=== PATIENT | female | born 1990 | race Caucasian/White ===

== ENCOUNTER 2016-08-17 17:53 | Emergency (ER) ==
[2016-08-17 17:58] VITALS: BP 124/81; TEMP 99.2; BMI 32.1
[2016-08-17] MEDS ORDERED: TORADOL IM STA (18:05)
[2016-08-17] MEDS ORDERED: DILAUDID 2 MG/ML SYRINGE IM STA (18:05)
[2016-08-17] MEDS ORDERED: PHENERGAN 25 MG/ML VIAL IM STA (18:05)
--- NOTE | 2016-08-17 18:08 | ED.PDOC ---
General ED Provider: Dr. BILL MEDINA-ER Chief Complaint: Headache Stated Complaint: tess got a migraine--tess had them since i was a little kid Time Seen by Physician: 17:55 Mode of Arrival: Walk-In Information Source: Patient Exam Limitations: No limitations Primary Care Provider: BILL MEDINA Nursing and Triage Documentation Reviewed and Agree: Yes Neurological Complaint Exam - Headache Complaint/Exam Onset: Gradual Duration: 24hrs Symptoms Are: Still present Timing: Constant Episodes Lasting: Hours Worst Headache Ever: No Initial Severity: Mild Current Severity: Moderate Location: Right Character: Reports: Dull, Throbbing, Pressure, Typical headache, Migraine Aggravating: Reports: Bright lights Alleviating: Reports: None Associated Signs and Symptoms: Reports: Nausea, Vomiting. Denies: Dizziness, Seizure, Sinus pressure, Fever, Neck pain, Neck stiffness, Decreased LOC, Visual changes Related History: Reports: Similar episode. Denies: Recent trauma, Remote trauma Related Surgical History: Reports: None SAH Risk Factors: Reports: None Meningitis Risk Factors: Reports: None SDH Risk Factors: Reports: None Temporal Arteritis Risk Factors: Reports: Female, Normal Head CT Within Last 12 Months: Yes Fundoscopic Exam: Present: Normal Findings Papilledema Present: No Temporal Artery Tenderness: Present: None Sinus Tenderness: Present: None TMJ Tenderness: Present: None Glascow Coma Scale (see protocol): 15 Meningeal Signs Positive: No Pain on Passive Flexion-Positive Kernig's: No ROM Limited In: No Limitiations Focal Weakness: Present: None Focal Sensory Loss: Present: None Gait: Normal Nystagmus Present: No Gag Reflex Present: Yes Romberg Test Positive: No Babinski Sign: Negative Right, Negative Left Heel to Toe Normal: Yes Differential Diagnoses: Migraine Review of Systems - Review Of Systems Constitutional: Reports: No symptoms Eyes: Reports: No symptoms Ears, Nose, Mouth, Throat: Reports: No symptoms Respiratory: Reports: No symptoms Cardiac: Reports: No symptoms GI: Reports: Nausea : Reports: No symptoms Musculoskeletal: Reports: No symptoms Skin: Reports: No symptoms Neurological: Reports: Headache Endocrine: Reports: No symptoms Hematologic/Lymphatic: Reports: No symptoms All Other Systems: Reviewed and Negative Past Medical History - Past Medical History Endocrine: Reports: Unknown Cardiovascular: Reports: Unknown Respiratory: Reports: Unknown Hematological: Reports: Unknown Gastrointestinal: Reports: Unknown Genitourinary: Reports: Unknown Neuro/Psych: Reports: Unknown Musculoskeletal: Reports: Unknown Cancer: Reports: Unknown Last Menstrual Period: now - Surgical History General Surgical History: Reports: Other - Family History Family History: Reports: Unknown - Social History Smoking Status: Never smoker Hx Substance Use: No Alcohol Screening: None Lives: With family Physical Exam - Physical Exam Appearance: Well-appearing, No pain distress, Well-nourished Pain Distress: Moderate Eyes: PELON, EOMI, Conjunctiva clear ENT: Ears normal, Nose normal, Oropharynx normal Neck: Supple Respiratory: Airway patent, Breath sounds clear, Breath sounds equal, Respirations nonlabored Cardiovascular: RRR, Pulses normal, No rub, No murmur GI/: Soft, Nontender, No masses, Bowel sounds normal, No Organomegaly Musculoskeletal: Normal strength, ROM intact, No edema, No calf tenderness Skin: Warm, Dry, Normal color Neurological: Sensation intact, Motor intact, Reflexes intact, Cranial nerves intact, Alert, Oriented Psychiatric: Affect appropriate, Mood appropriate Re-Evaluation - Re-Evaluation Time of Re-Evaluation: 18:08 Status: Improved Vital Signs Stable: Yes Pain Level: 1 Appearance: NAD Lungs: Clear Skin: Warm and Dry Neuro: Alert and Oriented X3 CV: RRR Critical Care Note - Critical Care Note Total Time (mins): 0 Course - Course Orders, Labs, Meds: Orders Category Date Time Status Hydromorphone HCl/Pf [Dilaudid 2 mg/ml Syringe] MEDS 08/17/16 18:05 Discontinued 2 mg IM ONCE STA Ketorolac Tromethamine [Toradol] MEDS 08/17/16 18:05 Discontinued 60 mg IM ONCE STA Promethazine HCl [Phenergan 25 mg/ml Vial] MEDS 08/17/16 18:05 Discontinued 25 mg IM ONCE STA Medications Discontinued Medications Generic Name Dose Route Start Last Admin Trade Name Freq PRN Reason Stop Dose Admin Hydromorphone HCl 2 mg 08/17/16 18:05 Dilaudid 2 Mg/Ml Syringe IM 08/17/16 18:06 ONCE STA Ketorolac Tromethamine 60 mg 08/17/16 18:05 Toradol IM 08/17/16 18:06 ONCE STA Promethazine HCl 25 mg 08/17/16 18:05 Phenergan 25 Mg/Ml Vial IM 08/17/16 18:06 ONCE STA Vital Signs: Temp Pulse Resp BP Pulse Ox 08/17/16 17:54 99.2 F 78 16 124/81 98 Departure - Departure Time of Disposition: 18:09 Disposition: HOME SELF-CARE Discharge Problem: Migraine headache Qualifiers: Migraine type: unspecified Status migrainosus presence: without status migrainosus Intractability: not intractable Qualifier Code: (G43.909) Migraine, unspecified, not intractable, without status migrainosus Instructions: Migraine Headache (ED) Condition: Good Pt referred to PMD for follow-up: Yes Additional Instructions: f/u with me in the office Allergies/Adverse Reactions: Allergies loratadine [From Claritin] Adverse Reaction (Verified 08/17/16 18:00) control Adverse Reaction (Uncoded 09/28/14 12:10) Home Medications: Ambulatory Orders Ethynodiol D-Ethinyl Estradiol [Zovia 1-35E Tablet] 1 each PO DAILY 08/17/16 Disposition Discussed With: Patient, Family
== END 2016-08-17 18:56 | disposition home or self-care (01) ==
LOC: ED 17:53
DX: G43.909 Migraine, unspecified, not intractable, without status migrainosus (principal)
CPT/HCPCS: 96372; 99282

== ENCOUNTER 2016-08-19 06:54 | Outpatient (CLI) ==
--- NOTE | 2016-08-19 09:38 | MRI ---
EXAM: MRA brain without IV contrast. DATE: 19 August 2016. HISTORY: Headaches. TECHNIQUE: 3-D yorz-vy-rcdett sequence centered on the [place] was performed without IV contr ast, using 1.2 Afia magnet. 3-D MIP reconstruction images of the intracranial arteries were produc ed in addition to the axial source images. Degree of vessel stenoses determined using NASCET criteri a. COMPARISON: MRI brain 19 August 2016. FINDINGS: Left vertebral artery is dominant. Basilar artery is normal in diameter, without focal s tenosis, dissection or aneurysm. Each superior cerebellar artery is intact. Right PCOM is intact, b ut diminutive in size, and only visible on the source images. Left PCOM is not visible. ACOM is in tact, but diminutive in size, and visible only on the source images. Symmetric bilateral blood flow is evident within the anterior, middle, and posterior cerebral artery distributions peripherally. No intracranial aneurysm or AVM is detected. Both petrous ICAs are normal. Each cavernous ICA demo nstrates longitudinal intraluminal dark linear bands which do not have corresponding abnormalities o n the T2W, FLAIR, or T1W sequences from the MRI brain exam. IMPRESSIONS: 1. Intact, diminutive ACOM. 2. Intact, diminutive right PCOM. 3. No intracranial aneurysm or AVM. 4. Left vertebral artery is dominant. 5. Longitudinal dark bands within each cavernous ICA on this MRA are most consistent with artifacts . There is no signal abnormality on the MRI brain images to indicate a true dissection.
--- NOTE | 2016-08-19 09:44 | MRI ---
EXAM: MRI brain without IV contrast. DATE: 19 August 2016. HISTORY: Headaches. TECHNIQUE: Sagittal T1W, axial T2W, axial FLAIR, axial T1W, axial DWI, and coronal T2W GRE sequence s of the brain were obtained using 1.2 Afia magnet. No IV contrast. COMPARISON: MRA brain 19 August 2016. MRI C-spine 05/08/2013. FINDINGS: The lateral ventricles are upper normal size. Cerebral sulci are are normal in size and configuration. Cisterna magna is mildly prominent (normal variation). No midline shift, mass effec t or abnormal extra-axial fluid collection is apparent. No acute infarct, hemorrhage or neoplasm is identified. Minimal FLAIR hyperintensity abutting the anterior horn of each lateral ventricle may be normal variation vs minimal small vessel disease. The chester - white matter differentiation is nor mal. The 7th/8th cranial nerve complexes, cerebellopontine angles, brainstem, and visible cervical spinal cord are normal. There is no cerebellar tonsillar ectopia. The pituitary gland is small in size. Corpus callosum is normal in size and configuration. Flow voids are present in the major int racranial arteries and in the dural venous sinuses. No aneurysm, AVM or dural venous sinus thrombos is is apparent. No orbit abnormality is identified. The mastoid air cells are unremarkable. There is minor mucosal thickening within each maxillary sinus and scattered ethmoid air cells. Several s mall lymph nodes are identified in the upper neck bilaterally. No neck mass or lymphadenopathy is d etected. No calvarial neoplasm or acute fracture is evident. T1W bone marrow signal in the cervical spine calvarium is similar to that of the intervertebral discs. IMPRESSIONS: 1. No acute infarct, hemorrhage, mass or hydrocephalus. 2. Normal variation vs minor periventricular small vessel disease. 3. Dexter cisterna magna normal variation. 4. Small pituitary gland. No pituitary lesion. 5. Minor ethmoid and maxillary sinus disease. 6. Borderline T1W bone marrow signal. DDX: Normal variation vs red marrow hyperplasia / red marro w reconversion. Correlate for anemia.
== END 2016-08-19 06:55 | disposition home or self-care (01) ==
LOC: RAD 06:54
PROVIDERS: ATTEND Family Medicine
DX: G43.009 Migraine without aura, not intractable, without status migrainosus (principal)

== ENCOUNTER 2016-12-23 10:40 | Outpatient (CLI) ==
--- NOTE | 2016-12-23 12:26 | DI ---
EXAM: Two views of the chest. 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 Findings: Heart size is normal. No focal consolidation. No appreciable pleural fluid and no pneum othorax. No acute osseous abnormalities. Impression: No acute cardiopulmonary process.
== END 2016-12-23 10:41 | disposition home or self-care (01) ==
LOC: RAD 10:40
PROVIDERS: ATTEND Family Medicine
DX: R76.12 Nonspecific reaction to cell mediated immunity measurement of gamma interferon antigen response without active tuberculosis (principal)

== ENCOUNTER 2018-01-30 15:01 | Emergency (ER) | payer OTHER ==
[2018-01-30 15:06] VITALS: BP 115/82; BMI 33.7
[2018-01-30] MEDS ORDERED: LACTATED RINGERS 1,000 ML IV STA ×2 (15:17→17:34)
[2018-01-30] MEDS ORDERED: LOMOTIL PO STA (15:17)
--- NOTE | 2018-01-30 15:17 | ED.PDOC ---
General ED Provider: Dr. NINA MENJIVAR Chief Complaint: Diarrhea Stated Complaint: Complains of Multiple diarrhea stools all day cannot quantify. Time Seen by Physician: 15:16 Mode of Arrival: Walk-In Information Source: Patient Exam Limitations: No limitations Primary Care Provider: BILL MEDINA Nursing and Triage Documentation Reviewed and Agree: No Does patient meet sepsis criteria?: No System Inflammatory Response Syndrome: Pulse >90 BPM Sepsis Protocol: For patient's 13 years and over: Temp is 96.8 and below OR 101 and greater Pulse >90 BPM Resp >20/minute Acutely Altered Mental Status Are patient's symptoms suggestive of a new infection, such as: -Pneumonia -Skin, Soft Tissue -Endocarditis -UTI -Bone, Joint Infection -Implantable Device -Acute Abdominal Infection -Wound Infection -Meningitis -Blood Stream Catheter Infection -Unknown GI Complaint Exam - Vomiting/Diarrhea Complaint/Exam Onset/Duration: 2 days Symptoms Are: Still present Episodes of Vomiting over last 24 Hours: 1 (while in the ER about 500ml) Episodes of Diarrhea Over Last 24 Hours: 25 Initial Severity: Moderate Current Severity: Severe Character of Diarrhea: Reports: Watery Aggravating: Reports: Food Alleviating: Reports: None Associated Signs and Symptoms: Reports: Abdominal pain, Cramping. Denies: Dizziness, Light-headedness, Melena, Hematemesis, Fever Recent Positive Test: No Use of Oral Contraceptives: Yes Use of Depoprovera: No Compliant With Contraceptive Use: Yes Non-GI Risk Factors: Reports: None Surgical Obstruction Risk Factors: Reports: None Related Surgical History: Reports: None Abdominal Findings: Present: Other (mild tenderness diffusely ). Absent: Rebound tenderness Kussmaul Respirations Present: No Differential Diagnoses: Bowel Obstruction, Cholecystitis, Cholelithiasis, Dehydration, Gastritis, PUD, Viral Gastroenteritis, Bacterial Gastroenteritis, Hepatitis, Pancreatitis, , UTI Review of Systems - Review Of Systems Constitutional: Reports: No symptoms Eyes: Reports: No symptoms Ears, Nose, Mouth, Throat: Reports: No symptoms Respiratory: Reports: No symptoms Cardiac: Reports: No symptoms GI: Reports: Abdominal pain, Nausea, Poor appetite. Denies: Vomiting : Reports: No symptoms Musculoskeletal: Reports: No symptoms Skin: Reports: No symptoms Neurological: Reports: No symptoms Endocrine: Reports: No symptoms Hematologic/Lymphatic: Reports: No symptoms All Other Systems: Reviewed and Negative Past Medical History - Past Medical History Previously Healthy: Yes Endocrine: Reports: None Cardiovascular: Reports: None Respiratory: Reports: None Hematological: Reports: None Gastrointestinal: Reports: None, Other (Appendicities ) Genitourinary: Reports: None Neuro/Psych: Reports: None Musculoskeletal: Reports: None Cancer: Reports: None Last Menstrual Period: 2 weeks - Surgical History General Surgical History: Reports: Appendectomy, Cholecystectomy, Other ( MISCARRIAGE X2) - Family History Family History: Reports: None - Social History Smoking Status: Never smoker Hx Substance Use: No Alcohol Screening: None Physical Exam - Physical Exam Appearance: Ill-appearing, Obese Ill-appearing: Mild Pain Distress: Mild Eyes: PELON, EOMI, Conjunctiva clear ENT: Nose normal, Oropharynx normal Neck: Supple Respiratory: Airway patent, Breath sounds clear, Breath sounds equal, Respirations nonlabored Cardiovascular: Pulses normal, No rub, No murmur, Tachycardia GI/: Soft, No masses, Bowel sounds normal, No Organomegaly, Tender (diffuse ) Musculoskeletal: Normal strength, ROM intact, No edema, No calf tenderness Skin: Warm, Dry, Normal color Neurological: Sensation intact, Motor intact, Cranial nerves intact, Alert, Oriented Psychiatric: Anxious Critical Care Note - Critical Care Note Total Time (mins): 0 Course - Course Hematology/Chemistry: 01/30/18 15:30 01/30/18 15:30 Orders, Labs, Meds: Lab Review 01/30/18 01/30/18 01/30/18 15:30 15:30 15:30 WBC 18.09 H RBC 5.15 Hgb 15.1 Hct 44.4 MCV 86.2 MCH 29.3 MCHC 34.0 RDW Coeff of Dayday 13.2 Plt Count 337 Immature Gran % (Auto) 0.4 Neut % (Auto) 85.7 Lymph % (Auto) 4.8 L [place] % (Auto) 5.6 Eos % (Auto) 3.1 Baso % (Auto) 0.4 Immature Gran # (Auto) 0.1 Neut # (Auto) 15.5 H Lymph # (Auto) 0.9 [place] # (Auto) 1.0 Eos # (Auto) 0.6 Baso # (Auto) 0.1 Sodium 138 Potassium 3.6 Chloride 106 Carbon Dioxide 21 Anion Gap 14.6 BUN 12 Creatinine 0.88 Estimated GFR (MDRD) 77.00 BUN/Creatinine Ratio 13.63 Glucose 93 Calcium 8.7 Total Bilirubin 0.7 AST 16 ALT 20 Alkaline Phosphatase 82 Total Protein 7.2 Albumin 3.1 L Globulin 4.1 Albumin/Globulin Ratio 0.76 Amylase 35 Lipase 11 Serum , Qual Negative Urine Color Urine Clarity Urine pH Ur Specific [place] Urine Protein Urine Glucose (UA) Urine Ketones Urine Blood Urine Nitrite Urine Bilirubin Urine Urobilinogen Ur Leukocyte Esterase Urine Microscopic RBC Ur Squamous Epith Cells Urine Mucus 01/30/18 16:37 WBC RBC Hgb Hct MCV MCH MCHC RDW Coeff of Dayday Plt Count Immature Gran % (Auto) Neut % (Auto) Lymph % (Auto) [place] % (Auto) Eos % (Auto) Baso % (Auto) Immature Gran # (Auto) Neut # (Auto) Lymph # (Auto) [place] # (Auto) Eos # (Auto) Baso # (Auto) Sodium Potassium Chloride Carbon Dioxide Anion Gap BUN Creatinine Estimated GFR (MDRD) BUN/Creatinine Ratio Glucose Calcium Total Bilirubin AST ALT Alkaline Phosphatase Total Protein Albumin Globulin Albumin/Globulin Ratio Amylase Lipase Serum , Qual Urine Color Yellow Urine Clarity Clear Urine pH 5.5 Ur Specific [place] >=1.030 Urine Protein 2+ Urine Glucose (UA) Negative Urine Ketones Trace Urine Blood 2+ Urine Nitrite Negative Urine Bilirubin 1+ Urine Urobilinogen 0.2 Ur Leukocyte Esterase Negative Urine Microscopic RBC 5-10 Ur Squamous Epith Cells 10-20 Urine Mucus 4+ Orders Category Date Time Status ED IV/MEDIPORT/POWERPORT .ONCE EMERGENCY 01/30/18 15:17 Active AMYLASE Stat LAB 01/30/18 15:30 Completed CBC W/ AUTO DIFF Stat LAB 01/30/18 15:30 Completed COMPREHENSIVE METABOLIC PANEL Stat LAB 01/30/18 15:30 Completed HCG QUALITATIVE [SERUM ] Stat LAB 01/30/18 15:30 Completed LIPASE Stat LAB 01/30/18 15:30 Completed URINALYSIS C & S IF INDICATED Stat LAB 01/30/18 16:37 Completed 0.9 % Sodium Chloride [Saline Flush] MEDS 01/30/18 15:17 Discontinued 1 syr IVF PRN PRN Dicyclomine Inj [Bentyl] MEDS 01/30/18 16:04 Discontinued 20 mg IM ONCE STA Diphenoxylate HCl/Atropine [Lomotil] MEDS 01/30/18 15:17 Discontinued 1 tab PO ONCE STA Morphine Sulfate [Morphine 2 mg/ml Syringe] MEDS 01/30/18 16:12 Discontinued 4 mg .ROUTE .STK-MED ONE Morphine Sulfate [Morphine 4 mg/ml Vial] MEDS 01/30/18 16:04 Discontinued 4 mg IVP ONCE STA Ondansetron HCl/Pf [Zofran 4 mg/2 ml] MEDS 01/30/18 17:08 Discontinued 4 mg IVP ONCE STA Promethazine HCl [Phenergan 25 mg/ml Vial] MEDS 01/30/18 15:40 Discontinued 25 mg .ROUTE .STK-MED ONE Promethazine HCl [Phenergan 25 mg/ml Vial] 25 mg MEDS 01/30/18 15:37 Discontinued 0.9 % Sodium Chloride [Sodium Chloride] 50 ml IV ONCE Ringers Lactated Solution [Lactated Ringers] 1,000 ml MEDS 01/30/18 15:17 Discontinued IV BOLUS Ringers Lactated Solution [Lactated Ringers] 1,000 ml MEDS 01/30/18 17:[address] ABD/PEL WO RENAL STONE PROT Stat RADS 01/30/18 16:21 Completed Medications Discontinued Medications Generic Name Dose Route Start Last Admin Trade Name Freq PRN Reason Stop Dose Admin Dicyclomine HCl 20 mg 01/30/18 16:04 01/30/18 16:17 Bentyl IM 01/30/18 16:05 20 mg ONCE STA Administration Diphenoxylate HCl/Atropine 1 tab 01/30/18 15:17 01/30/18 16:23 Lomotil PO 01/30/18 15:18 1 tab ONCE STA Administration Lactated Ringer's 1,000 mls @ 1,000 mls/hr 01/30/18 15:17 01/30/18 15:34 Lactated Ringers IV 01/30/18 16:16 1,000 mls/hr BOLUS STA Administration Promethazine HCl 25 mg/ Sodium 51 mls @ 75 mls/hr 01/30/18 15:37 01/30/18 15: 42 Chloride IV 01/30/18 16:17 75 mls/hr ONCE STA Administration Lactated Ringer's 1,000 mls @ 1,000 mls/hr 01/30/18 17:34 01/30/18 17:35 Lactated Ringers IV 01/30/18 18:33 1,000 mls/hr BOLUS STA Administration Morphine Sulfate 4 mg 01/30/18 16:04 01/30/18 16:28 Morphine 4 Mg/Ml Vial IVP 01/30/18 16:05 Not Given ONCE STA Ondansetron HCl 4 mg 01/30/18 17:08 01/30/18 17:30 Zofran 4 Mg/2 Ml IVP 01/30/18 17:09 4 mg ONCE STA Administration Sodium Chloride 1 syr 01/30/18 15:17 01/30/18 15:34 Saline Flush IVF 1 syr PRN PRN Administration To flush IV Vital Signs: Temp Pulse Resp BP Pulse Ox 01/30/18 16:40 98.5 F 01/30/18 15:01 100.0 F H 107 H 20 115/82 96 Departure - Departure Time of Disposition: 18:32 Disposition: HOME SELF-CARE Discharge Problem: Gastroenteritis and colitis, viral Instructions: Gastroenteritis (ED) Condition: Fair Pt referred to PMD for follow-up: Yes IPMP verified?: No Additional Instructions: Push fluids Follow up with PCP in 3 days Take medications as prescribed. Prescriptions: Dicyclomine HCl [Bentyl] 10 mg PO TID PRN #20 capsule PRN Reason: Abdominal Pain Diphenoxylate HCl/Atropine [Lomotil] 10 ml PO TID PRN #15 disp.syrin PRN Reason: Diarrhea Tramadol HCl [Ultram] 50 mg PO Q6H PRN #14 tablet PRN Reason: Severe Pain Allergies/Adverse Reactions: Allergies loratadine [From Claritin] Adverse Reaction (Verified 01/30/18 15:06) Home Medications: Ambulatory Orders Norethindrone-E.estradiol-Iron [Blisovi 24 Fe Tablet] 1 each PO DAILY 04/14/17 Dicyclomine HCl [Bentyl] 10 mg PO TID PRN #20 capsule 01/30/18 Diphenoxylate HCl/Atropine [Lomotil] 10 ml PO TID PRN #15 disp.syrin 01/30/18 Topiramate [Topamax] 25 mg PO DAILY 01/30/18 Tramadol HCl [Ultram] 50 mg PO Q6H PRN #14 tablet 01/30/18 Disposition Discussed With: Patient, Family
[2018-01-30] MEDS ORDERED: PHENERGAN 25 MG/ML VIAL 25 MG in SODIUM CHLORIDE 50 ML IV STA (15:37)
[2018-01-30] MEDS ORDERED: PHENERGAN 25 MG/ML VIAL ONE (15:40)
[2018-01-30] MEDS ORDERED: MORPHINE 4 MG/ML VIAL IVP STA (16:04)
[2018-01-30] MEDS ORDERED: BENTYL IM STA (16:04)
[2018-01-30] MEDS ORDERED: MORPHINE 2 MG/ML SYRINGE ONE (16:12)
[2018-01-30 16:40] VITALS: TEMP 98.5
--- NOTE | 2018-01-30 16:55 | CT ---
Exam: CT abdomen pelvis without intravenous contrast. Renal stone protocol. Reason for exam: Diffuse abdominal pain with nausea and vomiting. Comparison: Ultrasound right upper quadrant performed 10/01/2011. FINDINGS: No pleural effusion, or focal consolidation in the partially imaged lung bases. There is mild basilar atelectasis. Image interpretation is limited by the lack of intravenous contrast admini stration. The gallbladder has been removed. The spleen, pancreas, and adrenal glands appear grossly unremarkable within limitations of a noncontr asted study. No hydronephrosis, hydroureter, or nephrolithiasis in either kidney. Prominent appearing lymph nodes are seen throughout the abdominal mesenteric fat. No intra-abdominal free air or pelvic free fluid. The appendix is not definitively seen. No acute inflammatory findings are seen in the expected locat ion of the appendix. There are fluid filled loops of small bowel seen in the upper abdomen. There is a small only fat containing periumbilical hernia. The bladder appears grossly unremarkable although evaluation is limited by non distension. No hydronephrosis, hydroureter or nephrolithiasis in either kidney. No suspicious appearing osteoblastic or osteolytic lesions. Impression: 1. No acute inflammatory findings are seen within the abdomen or pelvis. 2. There are several loops of fluid-filled small bowel seen within the abdomen which may be physiolo gic but may also represent enteritis. 2. There are increased size and number of the mesenteric lymph nodes without evidence of new focal d isease process. Imaging findings can be seen with reactivity, inflammation, infection, and neoplasia. Foll ow-up imaging is recommended to document resolution/stability.
[2018-01-30] MEDS ORDERED: ZOFRAN 4 MG/2 ML IVP STA (17:08)
== END 2018-01-30 18:50 | disposition home or self-care (01) ==
LOC: ED 15:01
DX: A08.4 Viral intestinal infection, unspecified (principal)
CPT/HCPCS: 36415; 74176; 80053; 81001; 82150; 83690; 84703; 85025; 96361; 96365; 96375; 99284

== ENCOUNTER 2018-10-25 15:30 | Outpatient (CLI) | END 2018-10-25 15:31 | disposition home or self-care (01) | LOC: LAB 15:30 | PROVIDERS: ATTEND Family Medicine | DX: R21 Rash and other nonspecific skin eruption (principal); M25.541 Pain in joints of right hand; M25.542 Pain in joints of left hand | CPT/HCPCS: 36415; 80053; 81001; 85025; 85651; 86038; 86140 ==

== ENCOUNTER 2018-11-12 22:17 | Emergency (ER) ==
[2018-11-12 22:27] VITALS: BP 129/90; TEMP 98.7; BMI 35.4
[2018-11-12] MEDS ORDERED: SODIUM CHLORIDE 1,000 ML IV STA (22:48)
[2018-11-12] MEDS ORDERED: ZOFRAN 4 MG/2 ML IVP STA (22:48)
--- NOTE | 2018-11-12 22:49 | ED.PDOC ---
General ED Provider: Dr. BILL WILSON MD Chief Complaint: Abdominal Pain Stated Complaint: crampy abd pain of/off Time Seen by Physician: 22:40 Mode of Arrival: Walk-In Information Source: Patient Exam Limitations: No limitations Primary Care Provider: HARSHA KAT Nursing and Triage Documentation Reviewed and Agree: Yes Does patient meet sepsis criteria?: No If yes, has appropriate treatment been initiated?: Yes System Inflammatory Response Syndrome: Not Applicable Sepsis Protocol: For patient's 13 years and over: Temp is 96.8 and below OR 101 and greater Pulse >90 BPM Resp >20/minute Acutely Altered Mental Status Are patient's symptoms suggestive of a new infection, such as: -Pneumonia -Skin, Soft Tissue -Endocarditis -UTI -Bone, Joint Infection -Implantable Device -Acute Abdominal Infection -Wound Infection -Meningitis -Blood Stream Catheter Infection -Unknown Review of Systems - Review Of Systems Constitutional: Reports: Other Eyes: Reports: No symptoms Ears, Nose, Mouth, Throat: Reports: No symptoms Respiratory: Reports: No symptoms Cardiac: Reports: No symptoms GI: Reports: Abdominal pain (crampy wax and wane) : Reports: No symptoms Musculoskeletal: Reports: No symptoms Skin: Reports: No symptoms Neurological: Reports: No symptoms Endocrine: Reports: No symptoms Hematologic/Lymphatic: Reports: No symptoms All Other Systems: Reviewed and Negative Past Medical History - Past Medical History Previously Healthy: Yes Endocrine: Reports: None Cardiovascular: Reports: None Respiratory: Reports: None Hematological: Reports: None Gastrointestinal: Reports: None, Other (Appendicities ) Genitourinary: Reports: None Neuro/Psych: Reports: None Musculoskeletal: Reports: None Cancer: Reports: None Last Menstrual Period: 1 WEEK AGO - Surgical History General Surgical History: Reports: Appendectomy, Cholecystectomy, Other ( MISCARRIAGE X2) - Family History Family History: Reports: None - Social History Smoking Status: Never smoker Hx Substance Use: No Alcohol Screening: None - Immunizations Tetanus Shot up to Date: Yes Physical Exam - Physical Exam Appearance: Obese Ill-appearing: Mild Pain Distress: Mild Eyes: PELON, EOMI, Conjunctiva clear ENT: Ears normal, Nose normal, Oropharynx normal Neck: Supple Respiratory: Airway patent, Breath sounds clear, Breath sounds equal, Respirations nonlabored Cardiovascular: RRR GI/: Soft, Nontender, Bowel sounds hypoactive Musculoskeletal: Normal strength, ROM intact, No edema, No calf tenderness Skin: Warm, Dry, Normal color Neurological: Sensation intact, Motor intact, Reflexes intact, Cranial nerves intact, Alert, Oriented Psychiatric: Affect appropriate, Anxious Critical Care Note - Critical Care Note Total Time (mins): 0 Course - Course Hematology/Chemistry: 11/12/18 22:56 11/12/18 22:56 Orders, Labs, Meds: Lab Review 11/12/18 11/12/18 11/12/18 22:50 22:56 22:56 WBC 19.45 H RBC 4.71 Hgb 13.9 Hct 41.0 MCV 87.0 MCH 29.5 MCHC 33.9 RDW Coeff of Dayday 13.0 Plt Count 298 Immature Gran % (Auto) 0.8 Neut % (Auto) 82.9 Lymph % (Auto) 8.3 L Spencer % (Auto) 6.4 Eos % (Auto) 1.0 Baso % (Auto) 0.6 Immature Gran # (Auto) 0.2 Neut # (Auto) 16.1 H Lymph # (Auto) 1.6 Spencer # (Auto) 1.3 Eos # (Auto) 0.2 Baso # (Auto) 0.1 Sodium Potassium Chloride Carbon Dioxide Anion Gap BUN Creatinine Estimated GFR (MDRD) BUN/Creatinine Ratio Glucose Calcium Total Bilirubin AST ALT Alkaline Phosphatase Total Protein Albumin Globulin Albumin/Globulin Ratio HCG, Quant < 2.390 Urine Color Yellow Urine Clarity Slightly Urine pH 5.0 Ur Specific [place] >=1.030 Urine Protein Negative Urine Glucose (UA) Negative Urine Ketones Negative Urine Blood Negative Urine Nitrite Negative Urine Bilirubin Negative Urine Urobilinogen 0.2 Ur Leukocyte Esterase Negative 11/12/18 22:56 WBC RBC Hgb Hct MCV MCH MCHC RDW Coeff of Dayday Plt Count Immature Gran % (Auto) Neut % (Auto) Lymph % (Auto) Spencer % (Auto) Eos % (Auto) Baso % (Auto) Immature Gran # (Auto) Neut # (Auto) Lymph # (Auto) Spencer # (Auto) Eos # (Auto) Baso # (Auto) Sodium 137.8 Potassium 3.87 Chloride 105.4 Carbon Dioxide 25.0 Anion Gap 11.27 BUN 9.9 Creatinine 0.75 Estimated GFR (MDRD) 91.00 BUN/Creatinine Ratio 13.20 Glucose 96.2 Calcium 9.13 Total Bilirubin 0.32 AST 21.4 ALT 17.6 Alkaline Phosphatase 106.8 Total Protein 6.92 Albumin 4.33 Globulin 2.59 Albumin/Globulin Ratio 1.67 HCG, Quant Urine Color Urine Clarity Urine pH Ur Specific [place] Urine Protein Urine Glucose (UA) Urine Ketones Urine Blood Urine Nitrite Urine Bilirubin Urine Urobilinogen Ur Leukocyte Esterase Orders Category Date Time Status IV [ED IV/MEDIPORT/POWERPORT] .ONCE EMERGENCY 11/12/18 22:48 Active CBC W/ AUTO DIFF Stat LAB 11/12/18 22:56 Completed CMP [COMPREHENSIVE METABOLIC PANEL] Stat LAB 11/12/18 22:56 Completed HCG,QUANTITATIVE Stat LAB 11/12/18 22:56 Completed UA [URINALYSIS C & S IF INDICATED] Stat LAB 11/12/18 22:50 Completed 0.9 % Sodium Chloride [Saline Flush] MEDS 11/12/18 22:48 Ordered 1 syr IVF PRN PRN Ceftriaxone Sodium [Rocephin] MEDS 11/13/18 00:26 Discontinued 1 gm .ROUTE .STK-MED ONE Ceftriaxone Sodium [Rocephin] 1 gm MEDS 11/13/18 00:12 Discontinued 0.9 % Sodium Chloride [Sodium Chloride] 50 ml IV ONCE Ketorolac Tromethamine [Toradol] MEDS 11/13/18 00:11 Discontinued 60 mg IM ONCE STA Ketorolac Tromethamine [Toradol] MEDS 11/13/18 00:33 Discontinued 60 mg IVP ONCE STA Ondansetron HCl/Pf [Zofran 4 mg/2 ml] MEDS 11/12/18 22:48 Discontinued 4 mg IVP ONCE STA Sodium Chloride 0.9% [Sodium Chloride] 1,000 ml MEDS 11/12/18 22:48 Discontinued IV BOLUS KUB [ABDOMEN 1 VIEW] Stat RADS 11/12/18 22:47 Completed Medications Generic Name Dose Route Start Last Admin Trade Name Freq PRN Reason Stop Dose Admin Sodium Chloride 1 syr 11/12/18 22:48 11/12/18 23:08 Saline Flush IVF 1 syr PRN PRN Administration To flush IV Discontinued Medications Generic Name Dose Route Start Last Admin Trade Name Freq PRN Reason Stop Dose Admin Sodium Chloride 1,000 mls @ 1,000 mls/hr 11/12/18 22:48 11/12/18 23:08 Sodium Chloride IV 11/12/18 23:47 1,000 mls/hr BOLUS STA Administration Ceftriaxone Sodium 1 gm/ 50 mls @ 75 mls/hr 11/13/18 00:12 11/13/18 00:36 Sodium Chloride IV 11/13/18 00:51 75 mls/hr ONCE STA Administration Ketorolac Tromethamine 60 mg 11/13/18 00:11 11/13/18 00:35 Toradol IM 11/13/18 00:12 Not Given ONCE STA Ketorolac Tromethamine 60 mg 11/13/18 00:33 11/13/18 00:34 Toradol IVP 11/13/18 00:34 60 mg ONCE STA Administration Ondansetron HCl 4 mg 11/12/18 22:48 11/12/18 23:10 Zofran 4 Mg/2 Ml IVP 11/12/18 22:49 4 mg ONCE STA Administration Vital Signs: Temp Pulse Resp BP Pulse Ox 11/12/18 22:17 98.7 F 97 H 20 129/90 98 Departure - Departure Time of Disposition: 01:15 Disposition: HOME SELF-CARE Discharge Problem: Gastritis due to bacteria Instructions: Gastritis (ED) Condition: Good Pt referred to PMD for follow-up: Yes IPMP verified?: No Prescriptions: Ciprofloxacin HCl [Cipro] 500 mg PO BID 7 Days #14 tablet NS Allergies/Adverse Reactions: Allergies Influenza Virus Vaccines Adverse Reaction (Intermediate, Verified 11/12/18 22:29 ) Swelling "knot on my arm" methylprednisolone [From Medrol] Adverse Reaction (Intermediate, Unverified 22:29) Rash "my face gets red" ethinyl estradiol [From Ortho Tri-Cyclen (28)] Adverse Reaction (Verified 22:29) Abdominal Pain loratadine [From Claritin] Adverse Reaction (Verified 11/12/18 22:29) Hives norgestimate [From Ortho Tri-Cyclen (28)] Adverse Reaction (Verified 11/12/18 22 :30) Abdominal Pain PT STATES HER MD NOT SURE IF SHES ALLERGIC OR NOT, ADDED ON AN ALLERGY JUST IN CASE Home Medications: Ambulatory Orders Norethindrone-E.estradiol-Iron [Blisovi 24 Fe Tablet] 1 each PO DAILY 04/14/17 Ciprofloxacin HCl [Cipro] 500 mg PO BID 7 Days #14 tablet NS 11/13/18
[2018-11-13] MEDS ORDERED: TORADOL IM STA (00:11)
[2018-11-13] MEDS ORDERED: ROCEPHIN 1 GM in SODIUM CHLORIDE 50 ML IV STA (00:12)
--- NOTE | 2018-11-13 00:17 | DI ---
EXAM: Abdomen one-view HISTORY: Nausea and abdominal pains FINDINGS: Normal bowel gas pattern. No pathologic calcifications. No large free intraperitoneal ga s. No abundance of retained colonic stool. Skeleton appears normal. IMPRESSION: Negative exam.
[2018-11-13] MEDS ORDERED: ROCEPHIN ONE (00:26)
[2018-11-13] MEDS ORDERED: TORADOL IVP STA (00:33)
[2018-11-13] MEDS ORDERED: ZOFRAN 4 MG/2 ML IVP STA (01:44)
== END 2018-11-13 02:03 | disposition home or self-care (01) ==
LOC: ED 22:17
DX: K29.70 Gastritis, unspecified, without bleeding (principal)
CPT/HCPCS: 36415; 80053; 81001; 84702; 85025; 96361; 96365; 96375; 96376; 99283

== ENCOUNTER 2018-12-15 11:50 | Outpatient (CLI) ==
--- NOTE | 2018-12-15 16:55 | DI ---
EXAM: CHEST FRONTAL AND LATERAL VIEWS HISTORY: Screening for respiratory tuberculosis. COMPARISON: 12/23/2016 FINDINGS: Heart size and mediastinal contour remain within normal limits. There is no radiographi c evidence of mediastinal or paratracheal lymphadenopathy. No definite pulmonary or mediastinal calc ifications are seen to indicate previous granulomatous inflammation. There is no acute infiltrate or pulmonary cavitation. Bones are within normal limits IMPRESSION: 1. No distinct radiographic evidence of active or latent pulmonary tuberculosis.
== END 2018-12-15 11:51 | disposition home or self-care (01) ==
LOC: RAD 11:50
PROVIDERS: ATTEND Family Medicine
DX: Z11.1 Encounter for screening for respiratory tuberculosis (principal)